=== PATIENT | female | born 1955 | race Caucasian/White ===

== ENCOUNTER 2019-05-16 08:18 | Day surgery (SDC) | payer OTHER ==
[2019-05-13 13:06] VITALS: BMI 28.9
[2019-05-16] MEDS ORDERED: ONDANSETRON 4 MG/2 ML VIAL IVPUSH PRN (10:14)
[2019-05-16] MEDS ORDERED: oxyCODONE HCL 5 MG TABLET PO PRN (10:14)
[2019-05-16] MEDS ORDERED: IBUPROFEN 800 MG/8 ML IJ IVPB PRN (10:14)
[2019-05-16] MEDS ORDERED: LACTATED RINGERS SOLUTION 1,000 ML IV SCH (10:15)
[2019-05-16] MEDS ORDERED: MIDAZOLAM HCL 2 MG/2 ML SINGLE DOSE VIAL ONE (10:23)
[2019-05-16] MEDS ORDERED: LIDOCAINE HCL/PF 2% SDV 5ML VIAL ONE (10:23)
[2019-05-16] MEDS ORDERED: PROPOFOL 20 ML ONE (10:23)
[2019-05-16] MEDS ORDERED: ONABOTULINUMTOXINA 200 UNIT/VIAL VIAL NR ONE (10:30)
[2019-05-16] MEDS ORDERED: ACETAMINOPHEN 325 MG TABLET (FP) PO PRN (10:43)
[2019-05-16] MEDS ORDERED: ceFAZolin SODIUM 1 GM VIAL ONE (10:45)
[2019-05-16] MEDS ORDERED: ceFAZolin SODIUM 1 GM VIAL IVPB ONE (10:45)
[2019-05-16] MEDS ORDERED: ONABOTULINUMTOXINA 200 UNIT/VIAL VIAL IM ONE (10:47)
--- NOTE | 2019-05-16 11:12 | OP ---
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
--- NOTE | 2019-05-16 11:25 | HP ---
DATE OF ADMISSION: 05/16/2019 DATE OF DICTATION: 05/16/2019 Patient is a 64-year-old female with a history of refractory overactive bladder. She is status post multiple medications that were unsuccessful. She has had a sacral nerve neuromodulator placed in. This was removed last month because of a continuation of her overactive bladder symptoms. The patient complains of nocturia every hour, frequency 8-10 times a day, urgency, urgency incontinence, and hesitancy. She does have history of high blood pressure and diabetes. She underwent a cystocele repair in 2003. The patient is a postmenopausal. She denies ethanolism or tobacco. She denies any allergies. PHYSICAL EXAMINATION: General: A well-developed adult female in no apparent distress. Abdomen: Soft.Pelvic: Reveals a grade 1 cystorectocele that is atrophic vaginitis as well as a positive Maurizio test. Extremities: Reveal full range of motion with no cyanosis, clubbing, or edema. IMPRESSION: At present is overactive bladder. PLAN: Bladder instillation with Botox. Procedure has been explained fully to patient, and she agrees. NICK VERAS M.D. [id number]
[2019-05-16] MEDS ORDERED: IBUPROFEN 800 MG/8 ML IJ IVPB ONE ×2 (11:30→11:38)
--- NOTE | 2019-05-16 11:55 | OP ---
DATE OF OPERATION: 05/16/2019 PREOPERATIVE DIAGNOSIS: Refractory overactive bladder. POSTOPERATIVE DIAGNOSIS: Refractory overactive bladder. OPERATIVE PROCEDURE: Cystourethroscopy, injection of Botox for denervation. ANESTHESIA: General. DESCRIPTION OF PROCEDURE: Under above-stated anesthesia, patient was prepped and draped in the usual sterile manner. She was placed in the dorsal lithotomy position. A grade 1 cystorectocele was noted. Meatus was adequate. Cystoscopy was performed. Urine was collected for culture and sensitivity. 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 Ureteral orifices were within normal limits with efflux of clear urine. No lesions were noted. No calculi were seen. Dome and bladder lopez were clear, 200 units of Botox was mixed with 20 mL of normal saline, 1-mL injections were carried out 1 cm above the interureteric ridge starting from the right side and going to the left side at 5 injections. The 2nd, 3rd, and 4th row were also performed 1 cm above the pre-existing line. No active bleeding was noted. The bladder was emptied. The scope was removed. The patient tolerated the procedure well. She returned to the recovery room in good condition. Poornima [id number]
[2019-05-16 14:01] VITALS: BP 107/62; PULSE 66; TEMP 97.8
== END 2019-05-16 14:01 | disposition home or self-care (01) ==
LOC: JASU-SURG 08:18
PROVIDERS: ATTEND Urology
PROC: 3E0K8GC Introduction of Other Therapeutic Substance into Genitourinary Tract, Via Natural or Artificial Opening Endoscopic (ICD-10-PCS; principal; 2019-05-16 10:00)
DX: N32.81 Overactive bladder (principal)
CPT/HCPCS: 52287; J0585; 94760